=== PATIENT | male | born 1980 ===

== ENCOUNTER 2017-04-07 13:59 | Day surgery (SDC) | payer OTHER ==
--- NOTE | 2017-04-07 14:56 | EDPHY ---
H & P Stated Complaint: GOT CHICKEN STUCK IN ESOPAGUS AT LUNCH/CAN'T SWALLOW SECRETIONS Time Seen by Provider: 04/07/17 14:55 - Personal History Current Tetanus/Diphtheria Vaccine: Yes - Medical/Surgical History Hx Asthma: Yes Hx Chronic Respiratory Disease: No Hx Diabetes: No Hx Cardiac Disease: No Hx Renal Disease: No Hx Cirrhosis: No Hx Alcoholism: No Hx HIV/AIDS: No Hx Splenectomy or Spleen Trauma: No Other PMH: GERD/ANXIETY - Social History Smoking Status: Never smoked Constitutional: Initial Vital Signs Temperature (C) 36.9 C 04/07/17 14:05 Heart Rate 99 04/07/17 14:05 Respiratory Rate 16 04/07/17 14:05 Blood Pressure 111/86 H 04/07/17 14:05 O2 Sat (%) 96 04/07/17 14:05 O2 Delivery Mode Simple Mask O2 (L/minute) 8 Allergies/Adverse Reactions: cefaclor [From Ceclor] Allergy (Verified 04/07/17 14:04) Home Medications: Medication Instructions Recorded LORAZEPAM 04/07/17 Qvar 04/07/17 Ventolin Hfa 04/07/17 Medical Decision Making ED Course/Re-evaluation: CHIEF COMPLAINT: Chicken stuck in throat HISTORY OF PRESENT ILLNESS: This patient is a healthy 36 year old male presenting for evaluation of a foreign body stuck in his throat since around 12:30 this afternoon, 2.5 hours ago. He was eating a piece of chicken which became stuck and has not been able to swallow since. He has no respiratory distress, and is able to talk comfortably. He has been unable to swallow saliva, water, or anything else. He has had occasional dysphagia over the last year, but not to this severity. He describes occasional pain or difficulty with swallowing. He is not anticoagulated. He denies fever, nausea, vomiting, chest pain, or other associated symptoms. REVIEW OF SYSTEMS: A 10 point review of systems was performed and is negative with the exception of the elements mentioned in the history of present illness. PHYSICAL EXAM: HR, BP, O2 Sat, RR. Temp noted General Appearance: Alert, well hydrated, appropriate, and non-toxic appearing. Head: Atraumatic without scalp tenderness or obvious injury Eyes: Pupils equal, round, reactive to light and accommodation, EOMI, no trauma , no injection. Nose: Atraumatic, no rhinorrhea, clear. Throat: There is no erythema or exudates, no lesions, normal tonsils, mucus membranes moist. Neck: Supple, nontender, no lymphadenopathy. Respiratory: No retractions, no distress, no wheezes, and no accessory muscle use. Lungs are clear to auscultation bilaterally. Cardiovascular: Regular rate and rhythm, no murmurs, rubs, or gallops. Good capillary refill all extremities. Gastrointestinal: Abdomen is soft, nontender, non-distended, no masses, no rebound, no guarding, no peritoneal signs. Musculoskeletal: Normal active ROM of all extremities, atraumatic. Neurological: Alert, appropriate, and interactive. Nonfocal neuro exam. Skin: No rashes, good turgor, no nodules on palpation. Past medical history: GERD, anxiety Past surgical history: Noncontributory Family history: Noncontributory. Social history: . Lives in [place]. Nonsmoker. DIFFERENTIAL DIAGNOSIS: The differential diagnosis for the patient's dysphagia includes but is not limited to strictures, Schatzki rings, esophageal webs, foreign bodies, vascular compression, and mediastinal masses. MEDICAL DECISION MAKIN36 year old male presents with aphagia after attempting to swallow a piece of chicken earlier this afternoon. Plan to consult with GI for scope and foreign body removal. 15:26 Dr. Lebron, scrap drop crane operator, at bedside. He will assume care, perform upper endoscopy under general anesthesia. - Data Points Laboratory Results: Laboratory Results 04/07/17 15:15 04/07/17 15:15 04/07/17 04/07/17 04/07/17 15:15 15:15 15:15 WBC 11.08 10^3/uL H 10^3/uL (3.80-9.50) RBC 5.39 10^6/uL 10^6/uL (4.40-6.38) Hgb 16.3 g/dL g/dL (13.7-17.5) Hct 47.7 % % (40.0-51.0) MCV 88.5 fL fL (81.5-99.8) MCH 30.2 pg pg (27.9-34.1) MCHC 34.2 g/dL g/dL (32.4-36.7) RDW 13.5 % % (11.5-15.2) Plt Count 264 10^3/uL 10^3/uL (150-400) MPV 9.5 fL fL (8.7-11.7) Neut % (Auto) 75.5 % H % (39.3-74.2) Lymph % (Auto) 14.6 % L % (15.0-45.0) Pratt % (Auto) 7.4 % % (4.5-13.0) Eos % (Auto) 1.5 % % (0.6-7.6) Baso % (Auto) 0.7 % % (0.3-1.7) Nucleat RBC Rel Count 0.0 % % (0.0-0.2) Absolute Neuts (auto) 8.36 10^3/uL H 10^3/uL (1.70-6.50) Absolute Lymphs (auto) 1.62 10^3/uL 10^3/uL (1.00-3.00) Absolute Monos (auto) 0.82 10^3/uL H 10^3/uL (0.30-0.80) Absolute Eos (auto) 0.17 10^3/uL 10^3/uL (0.03-0.40) Absolute Basos (auto) 0.08 10^3/uL 10^3/uL (0.02-0.10) Absolute Nucleated RBC 0.00 10^3/uL 10^3/uL (0-0.01) Immature Gran % 0.3 % % (0.0-1.1) Immature Gran # 0.03 10^3/uL 10^3/uL (0.00-0.10) PT 13.0 SEC SEC (12.0-15.0) INR 0.99 (0.83-1.16) APTT 24.7 SEC SEC (23.0-38.0) Sodium 141 mEq/L mEq/L (134-144) Potassium 3.9 mEq/L mEq/L (3.5-5.2) Chloride 105 mEq/L mEq/L (97-110) Carbon Dioxide 21 mEq/l L mEq/l (22-31) Anion Gap 15 mEq/L mEq/L (8-16) BUN 13 mg/dL mg/dL (7-23) Creatinine 0.9 mg/dL mg/dL (0.7-1.3) Estimated GFR > 60 Glucose 96 mg/dL mg/dL (70-100) Calcium 9.6 mg/dL mg/dL (8.5-10.4) Departure - Departure Disposition: [facility] Inpatient Acute Clinical Impression: Foreign body in throat Qualifiers: Encounter type: initial encounter Qualified Code(s): T17.208A - Unspecified foreign body in pharynx causing other injury, initial encounter Condition: Fair Instructions: [facility] After Sedation Instructions, Esophageal Foreign Body (GEN), Upper Endoscopy (DC) Referrals: Patient,NotPresent [Primary Care Provider] - As per Instructions Report Scribed for: Maxwell Garza Report Scribed by: Keira Odell Date of Report: 04/07/17 Time of Report: 15:31
[2017-04-07 15:27] LABS: % IMMATURE GRANULYOCYTES 0.3 % (0.0-1.1); ABSOLUTE IMMATURE GRANULOCYTES 0.03 10^3/uL (0.00-0.10); ADD DIFF? NO; ADD MORPH? NO; ADD SCAN? NO; ATYPICAL LYMPHOCYTE FLAG 0 (0-99); FRAGMENT RBC FLAG 0 (0-99); HEMATOCRIT 47.7 % (40.0-51.0); HEMOGLOBIN 16.3 g/dL (13.7-17.5); LEFT SHIFT FLG 0 (0-99); LIPEMIA HEMOLYSIS FLAG 90 (0-99); MEAN CELL HEMOGLOBIN 30.2 pg (27.9-34.1); MEAN CELL HEMOGLOBIN CONCENTR. 34.2 g/dL (32.4-36.7); MEAN CELL VOLUME 88.5 fL (81.5-99.8); MEAN PLATELET VOLUME 9.5 fL (8.7-11.7); PLATELET CLUMPS FLAG 10 (0-99); PLATELET COUNT 264 10^3/uL (150-400); RED BLOOD CELL COUNT 5.39 10^6/uL (4.40-6.38); RED CELL DISTRIBUTION WIDTH 13.5 % (11.5-15.2)
[2017-04-07 15:39] LABS: INR 0.99 (0.83-1.16)
[2017-04-07 15:40] LABS: APTT 24.7 SEC (23.0-38.0)
[2017-04-07 15:48] LABS: ANION GAP 15 mEq/L (8-16); CALCIUM 9.6 mg/dL (8.5-10.4); CARBON DIOXIDE 21 mEq/l (22-31); CHLORIDE 105 mEq/L (97-110); CREATININE 0.9 mg/dL (0.7-1.3); GLOMERULAR FILTRATION RATE > 60; GLUCOSE 96 mg/dL (70-100); POTASSIUM 3.9 mEq/L (3.5-5.2); SODIUM 141 mEq/L (134-144)
[2017-04-07] MEDS ORDERED: LIDOCAINE 2% 100 MG/5 ML SYR ONE (15:50)
[2017-04-07] MEDS ORDERED: PROPOFOL 200 MG/20 ML VIAL ONE (15:50)
[2017-04-07] MEDS ORDERED: fentaNYL 100 MCG/2 ML INJ ONE (15:50)
[2017-04-07] MEDS ORDERED: ROCURONIUM 50 MG/5 ML VIAL ONE (15:50)
[2017-04-07] MEDS ORDERED: MIDAZOLAM 2 MG/2 ML VIAL ONE (15:50)
--- NOTE | 2017-04-07 16:27 | GIREPORT ---
[facility] Surgical Services - Endoscopy Department Patient Name: Mahad Chiu Procedure Date: 04/07/2017 4:00 PM Patient Type: Outpatient Attending / ER Physician: Martin Lebron MD Procedure: Upper GI endoscopy Indications: Dysphagia, Foreign body in the esophagus Providers: Martin Lebron MD Medicines: Sedation Required Anesthesia Staff Assistance, General Anesthesia Complications: No immediate complications. Findings: Food was found in the lower third of the esophagus. Removal was accomplished with a Ellsworth net. One moderate benign-appearing, intrinsic stenosis was found 40 cm from the incisors. And was traversed. The examined esophagus was normal. Biopsies were obtained from the proximal and distal esophagus with cold forceps for histology of suspected eosinophilic esophagitis. A small hiatal hernia was present. The entire examined stomach was normal. The examined duodenum was normal. Estimated Blood Loss: Estimated blood loss: none. Post Op Diagnosis: - Food was found in the esophagus. Removal was successful. - Benign-appearing esophageal stenosis. - Normal esophagus. Biopsied. - Small hiatal hernia. - Normal stomach. - Normal examined duodenum. Recommendation: - Patient has a contact number available for emergencies. The signs and symptoms of potential delayed complications were discussed with the patient. Return to normal activities tomorrow. Written discharge instructions were provided to the patient. - Advance diet as tolerated. - Use Prilosec (omeprazole) 20 mg PO daily. - Await pathology results. - Repeat upper endoscopy in 4 weeks for retreatment. - Thank you for allowing me to participate in the care of your patient. Attending Participation: I personally performed the entire procedure. Martin Lebron MD Martin Lebron MD 04/07/2017 4:26:47 PM Number of Addenda: 0 Note Initiated On: 04/07/2017 4:00 PM Total Procedure Duration Time 0 hours 7 minutes 20 seconds [email or web address]
[2017-04-07] MEDS ORDERED: fentaNYL 100 MCG/2 ML INJ IVP PRN (16:35)
[2017-04-07] MEDS ORDERED: NALOXONE HCL 0.4 MG/ML INJ IVP PRN (16:35)
[2017-04-07] MEDS ORDERED: ALBUTEROL 3 ML DEYVIAL IH PRN (16:35)
[2017-04-07] MEDS ORDERED: ONDANSETRON 4 MG/2 ML VIAL IVP PRN (16:35)
--- NOTE | 2017-04-07 16:35 | POSTANESTH ---
Post Anesthetic Evaluation Cardiovascular Status: Normal, Stable Respiratory Status: Normal, Stable Level of Consciousness/Mental Status: Can Participate in Eval Pain Control: Adequate, Prn Tx Ordered Nausea/Vomiting Control: Adequate, Prn Tx Ordered Complications Possibly Related to Anesthesia: None Noted
--- NOTE | 2017-04-07 16:35 | PDANEPAE ---
ANE Past Medical History - Pulmonary History Hx Oxygen in Use at Home: No - Endocrine History Hx Diabetes: No ANE Review of Systems Review of Systems: ANE Patient History - Allergies Allergies/Adverse Reactions: cefaclor [From Ceclor] Allergy (Verified 04/07/17 14:04) - Home Medications Home Medications: LORAZEPAM 04/07/17 [Last Taken Unknown] Qvar 04/07/17 [Last Taken Unknown] Ventolin Hfa 04/07/17 [Last Taken Unknown] - Smoking Hx Smoking Status: Never smoked ANE Labs/Vital Signs - Labs Result Diagrams: 04/07/17 15:15 04/07/17 15:15 - Vital Signs Blood Pressure: 111/86 Heart Rate: 99 Respiratory Rate: 16 O2 Sat (%): 96 Height: 187.96 cm Weight: 108.862 kg ANE Physical Exam - Airway Neck exam: FROM Mallampati Score: Class 1 Mouth exam: normal dental/mouth exam - Pulmonary Pulmonary: no respiratory distress - Cardiovascular Cardiovascular: regular rate and rhythym - ASA Status ASA Status: I, E ANE Anesthesia Plan Anesthesia Plan: general endotracheal anesthesia
[2017-04-07 17:03] VITALS: PULSE 94; RESP 16; TEMP 97.9
[2017-04-07 17:29] VITALS: BP 124/79; O2SAT 96
--- NOTE | 2017-04-07 20:15 | GCON ---
[f rep st] CONSULTATION CHIEF COMPLAINT: A 36-year-old gentleman with foreign body sensation, unable to maintain oral secret ions. HISTORY OF PRESENT ILLNESS: I been asked to see in consultation this patient by Dr. Garza, for sym ptoms of foreign body at the esophagus. The patient is a 36-year-old gentleman with history of reflu x disease. He had been on Prilosec in the past. He also has a history of asthma. He has had interm ittent problems with dysphagia in the last year. Typically food will pass on its own after drinking water. Today he was eating lunch. He was eating, chicken and he noted impaction of the chicken. It felt high in his esophagus. He was unable to swallow liquids and has difficulty swallowing saliva. He presented to the emergency department. PAST MEDICAL HISTORY: Remarkable for asthma, gastroesophageal reflux disease. MEDICATIONS: None. ALLERGIES: None. FAMILY HISTORY: Negative as it pertains to chief complaint. SOCIAL HISTORY: He is a nonsmoker. Drinks occasional alcohol. REVIEW OF SYSTEMS: Negative for 10 systems other than mentioned HPI. PHYSICAL EXAM: VITAL SIGNS: Temperature is 36.9, heart rate 99, respiratory rate 16, 111/86, pulse ox 96% sat. HEENT: A very pleasant gentleman, no acute distress. Spitting saliva into a cup. HEEN T: Normocephalic atraumatic. EOMI. NECK: Supple. No crepitus. No cervical adenopathy. LUNGS: Clear. CARDIAC: Normal S1, S2 without murmur. ABDOMEN: Benign, soft, nontender. No hepatosplenom egaly. EXTREMITIES: Without clubbing, cyanosis, edema. NEURO: Nonfocal. SKIN: Warm, dry, intact . PSYCH: Alert and oriented x3 with normal affect. LABORATORY DATA: Hemoglobin 16.3, hematocrit 47.7. IMPRESSION: A 36-year-old male with a history of reflux disease and asthma. Differential diagnosis includes peptic stricture or eosinophilic esophagitis. The patient with presentation consistent with acute foreign body of the esophagus. RECOMMENDATIONS: Proceed with urgent endoscopy with Anesthesia assistance for further management. W e will obtain biopsies if possible, dilatation if possible. /[id number]/MODL
== END 2017-04-07 17:20 | disposition home or self-care (01) ==
LOC: FSGY 16:00
PROVIDERS: ATTEND Internal Medicine Gastroenterology
PROC: 0DB58ZX Excision of Esophagus, Via Natural or Artificial Opening Endoscopic, Diagnostic (ICD-10-PCS; principal; 2017-04-07 14:00)
PROC: 0DC38ZZ Extirpation of Matter from Lower Esophagus, Via Natural or Artificial Opening Endoscopic (ICD-10-PCS; principal; 2017-04-07 14:00)
DX: T18.128A Food in esophagus causing other injury, initial encounter (principal); Y93.89 Activity, other specified; Y99.8 Other external cause status; K20.0 Eosinophilic esophagitis; K21.9 Gastro-esophageal reflux disease without esophagitis; J45.909 Unspecified asthma, uncomplicated
CPT/HCPCS: J2001; J2250; J2704; J3010

== ENCOUNTER 2017-06-30 18:09 | Emergency (ER) | payer OTHER ==
[2017-06-30 18:11] VITALS: TEMP 97.5
[2017-06-30] MEDS ORDERED: NS 1,000 ML IV ONE (18:21)
[2017-06-30] MEDS ORDERED: methylPREDNISolone SOD SUCC 125 MG/2 ML VIAL IVP ONE (18:21)
--- NOTE | 2017-06-30 18:23 | EDPHY ---
HPI/HX/ROS/PE/MDM Narrative: CHIEF COMPLAINT: Allergic reaction, rash HPI: The patient is a 36 y/o male with a history of allergies to nuts arriving with his family complaining of a diffuse erythematous and pruritic rash secondary to eating a chocolate bar with nuts in it one hour ago. He currently feels "a tad itchy" everywhere, but denies any airway or respiratory involvement. He has an EpiPen, but did not use it. He denies vomiting, abdominal pain, dyspnea, throat swelling, wheezing, or other symptoms. As a teenager he had a similar reaction to cashews that did result in some airway involvement, but has never used epinephrine to treat symptoms. REVIEW OF SYSTEMS: Aside from elements discussed in the HPI, a comprehensive 10-point review of systems was reviewed and is negative. PMH: Asthma, anxiety, GERD, nut allergy SOCIAL HISTORY: Family at bedside. . Lives in [place]. Employed PHYSICAL EXAM: General:Patient is alert, in no acute distress. ENT:Eyes are normal to inspection. ENT inspection normal. Uvula midline. No angioedema. Neck: Normal inspection. Full range of motion. Respiratory:No respiratory distress. Breath sounds normal bilaterally. No wheezing or stridor. Cardiovascular: Regular rate and rhythm. Strong peripheral pulses. Normal cap refill. Abdomen:The abdomen is nontender to palpation. There are no peritoneal signs. Back: Normal to inspection. No tenderness to palpation. Skin: Diffuse red flushing. Warm and dry. Extremities: Normal appearance. Full range of motion. Neuro: Oriented x3. Normal motor function. Normal sensory function. ED Course: This is a 36 y/o male with a history of asthma and nut allergy who presents with diffuse flushing and itching after eating chocolate with nuts in it one hour ago. He has a normal airway and respiratory exam. Plan for IV, observation , and symptom management. 50mg IV Benadryl, 125mg IV Solumedrol, and 1L IV NS administered. 1899: Reassessed patient. He is feeling improved. 2024: Reassessed patient. He is feeling back to baseline and ready to go home. He will be discharged home with standard allergic reaction care and follow up instructions. Return precautions discussed. He is comfortable with plan for discharge. - Data Points Medications Given: Discontinued Medications Diphenhydramine HCl (Benadryl Injection) 50 mg IVP EDNOW ONE Stop: 06/30/17 18:22 Last Admin: 06/30/17 18:27 Dose: 50 mg Sodium Chloride (Ns) 1,000 mls @ 0 mls/hr IV ONCE ONE; Wide Open PRN Reason: Protocol Stop: 06/30/17 18:22 Last Admin: 06/30/17 18:27 Dose: 1,000 mls Methylprednisolone Sodium Succinate (Solu-Medrol) 125 mg IVP EDNOW ONE Stop: 06/30/17 18:22 Last Admin: 06/30/17 18:27 Dose: 125 mg General Initial Vital Signs: Initial Vital Signs Temperature (C) 36.4 C 06/30/17 18:10 Heart Rate 109 H 06/30/17 18:10 Respiratory Rate 20 06/30/17 18:10 Blood Pressure 130/80 H 06/30/17 18:10 O2 Sat (%) 97 06/30/17 18:10 O2 Delivery Mode Room Air Allergies/Adverse Reactions: cefaclor [From [facility]] Allergy (Verified 04/07/17 14:04) Home Medications: Medication Instructions Recorded LORAZEPAM 04/07/17 Qvar 04/07/17 Ventolin Hfa 04/07/17 EPINEPHRINE 06/30/17 Omeprazole 06/30/17 predniSONE 60 mg PO DAILY 3 Days tab 06/30/17 Departure - Departure Disposition: Home, Routine, Self-Care Clinical Impression: Allergic reaction Qualifiers: Encounter type: initial encounter Qualified Code(s): T78.40XA - Allergy, unspecified, initial encounter Condition: Good Instructions: General Allergic Reaction (ED) Additional Instructions: Follow-up with your primary doctor within 72 hours. Use [id number] Benadryl as directed for itching. Return to the Emergency Department for shortness of breath, difficulty swallowing, difficulty breathing, worsening of rash, fever or other worsening of condition. Use EpiPen in case of allergic emergency. Referrals: Kylah Corrales MD [[facility] [place]] - As per Instructions Prescriptions: predniSONE 60 mg PO DAILY 3 Days tab Report Scribed for: Senthil Marx Report Scribed by: Chante Roy Date of Report: 06/30/17 Time of Report: 18:23 Physician Review and Approval Statement: Portions of this note were transcribed by an ED scribe. I personally performed the history, physical exam, and medical decision making; and confirm the accuracy of the information in the transcribed note.
[2017-06-30 18:58] VITALS: RESP 16; O2SAT 96
[2017-06-30 20:52] VITALS: BP 121/59; PULSE 72
== END 2017-06-30 20:52 | disposition home or self-care (01) ==
DX: T78.40XA Allergy, unspecified, initial encounter (principal); J45.909 Unspecified asthma, uncomplicated; E86.9 Volume depletion, unspecified
CPT/HCPCS: 96374; J1200; J2930